=== PATIENT | male | born 1955 | race Caucasian/White ===

== ENCOUNTER 2017-09-30 00:26 | Emergency (ER) | payer OTHER ==
[~2017-09-30] VITALS: Ht 172.7 cm; Wt 98.4 kg
[2017-09-30 00:29] VITALS: BP 169/92
[2017-09-30] MEDS ORDERED: CILOXAN5 ML OPH (00:46)
--- NOTE | 2017-09-30 00:46 | ED EYE COMPLAINT ---
History of Present Illness General Chief Complaint: Eye Problems Stated Complaint: "I DONT KNOW IF I HAVE SOMETHING IN MY EYE OR NOT" Source: patient Exam Limitations: no limitations Vital Signs & Intake/Output Vital Signs & Intake/Output Vital Signs Date Time Temp Pulse Resp B/P B/P Pulse O2 O2 Flow FiO2 Mean Ox Delivery Rate 09/30 0041 97 Room Air 09/30 0029 96.5 74 18 169/92 96 Room Air Allergies Coded Allergies: NO KNOWN ALLERGIES (12/05/12) Reconcile Medications Ciprofloxacin (Ciloxan) 0.3 % DROPS 1 GTT OPH TID CORNEAL ABRASION Triage Note: PT FROM HOME C/O RIGHT EYE IRRITATION X4 HOURS. PT STATES THROUGHOUT THE DAY HE NOTICED HIS EYE TO BECOME IRRITATED, "I MAY HAVE SOMETHING IN IT" PT DENIES TRAUMA OR INURY TO RIGHT EYE. PT HAS SEASONAL ALLERGIES. PTS EYE IS RED, DENIES BLURRY VISION. VSS. Triage Nurses Notes Reviewed? yes HPI: Patient presents to the emergency department complaining of a foreign body sensation in his right eye. His right eye Watering. Patient was cutting wood earlier today. Patient states his symptoms have been there for the past 5 hours. Patient used to "washcloth without any relief. Patient denies any blurry vision. There is no nausea or vomiting. Past History Travel History Traveled to [place] past 21 day No Medical History Any Pertinent Medical History? see below for history Cardiovascular: hypertension, hyperlipidemia Surgical History Surgical History: non-contributory Psychosocial History What is your primary language Occitan Tobacco Use: Quit >30 days ago ETOH Use: denies use Illicit Drug Use: denies illicit drug use Family History Hx Contributory? No Review of Systems Review of Systems Constitutional: Reports: no symptoms. Eyes: Reports: see HPI, foreign body sensation. Respiratory: Reports: no symptoms. Cardiovascular: Reports: no symptoms. GI: Reports: no symptoms. Musculoskeletal: Reports: no symptoms. Neurological/Psychological: Reports: no symptoms. Physical Exam General Appearance: well developed/nourished, no apparent distress General Inspection: normal inspection EOM: intact Pupil: normal accommodation, normal pupil, PERRL General Inspection: normal inspection Eyelid: normal inspection, everted for exam Conjunctiva/Sclera: normal inspection Cornea: examined w/fluorescein, abrasion EOM: intact Pupil: normal accommodation, normal pupil, PERRL Physical Exam Head: atraumatic Cardiovascular/Respiratory: normal breath sounds, normal peripheral pulses, regular rate/rhythm, no respiratory distress Neurologic/Psych: no motor/sensory deficits, awake, alert, oriented x 3, normal gait, normal mood/affect Progress Differential Diagnosis: corneal abrasion Plan of Care: CILOXAN Departure Departure Disposition: HOME OR SELF CARE Condition: Stable Clinical Impression Primary Impression: Corneal abrasion, right Referrals: Barnes Xu THAKKAR (PCP/Family) Additional Instructions: USE EYE DROP PRESCRIBED RETURN IF SYMPTOMS WORSEN OR FOR ANY CONCERNS Departure Forms: Customer Survey General Discharge Information Prescriptions: Current Visit Scripts Ciprofloxacin (Ciloxan) 1 GTT OPH TID #5 ML
== END 2017-09-30 00:50 ==
LOC: ERH 00:26
DX: S05.01XA Injury of conjunctiva and corneal abrasion without foreign body, right eye, initial encounter (principal); X58.XXXA Exposure to other specified factors, initial encounter; Y93.89 Activity, other specified; Y92.9 Unspecified place or not applicable